=== PATIENT | female | born 1945 | race Caucasian/White ===

== ENCOUNTER → 2016-10-01 | Outpatient (CLI) | payer MEDICARE, BC ==
[~2016-10-01] MED LIST: MIRALAX17 GM PO; SIMVASTATIN20 MG PO; ST. JOSEPH81 M2 PO
== END ==
LOC: MAMMO 13:40
DX: Z12.31 Encounter for screening mammogram for malignant neoplasm of breast (principal); Z00.00 Encounter for general adult medical examination without abnormal findings
CPT/HCPCS: G0202

== ENCOUNTER → 2016-10-14 | Day surgery (SDC) | payer MEDICARE, BC | LOC: MSO 07:07 | DX: Z12.11 Encounter for screening for malignant neoplasm of colon (principal); D12.5 Benign neoplasm of sigmoid colon; D12.3 Benign neoplasm of transverse colon; K57.30 Diverticulosis of large intestine without perforation or abscess without bleeding; Z87.891 Personal history of nicotine dependence | CPT/HCPCS: 00810; A4649; J3010; J7120 ==

== ENCOUNTER → 2016-10-16 | Outpatient (CLI) | payer MEDICARE, BC | LOC: RAD 08:58 | DX: R41.3 Other amnesia (principal) ==

== ENCOUNTER 2016-10-24 15:37 | Emergency (ER) | payer MEDICARE, BC ==
[~2016-10-24 15:37] MED LIST changes: -MIRALAX17 GM PO
[2016-10-24] MEDS ORDERED: MIRALAX17 GM PO (15:51)
[2016-10-24 18:45] VITALS: BP 128/53
== END 2016-10-24 18:52 | disposition home or self-care (01) ==
LOC: ED 15:37
DX: K59.00 Constipation, unspecified (principal)

== ENCOUNTER → 2016-11-27 | Outpatient (CLI) | payer MEDICARE, BC ==
[~2016-11-27] MED LIST changes: +MIRALAX17 GM PO
== END ==
LOC: LAB 07:02
DX: Z00.00 Encounter for general adult medical examination without abnormal findings (principal); R41.3 Other amnesia; K59.09 Other constipation; E78.2 Mixed hyperlipidemia; R73.01 Impaired fasting glucose

== ENCOUNTER → 2017-10-07 | Outpatient (CLI) | payer MEDICARE, BC | LOC: MAMMO 08:20 → RAD 08:30 → MAMMO 08:30 | DX: Z12.31 Encounter for screening mammogram for malignant neoplasm of breast (principal) ==

== ENCOUNTER → 2017-10-07 | Outpatient (CLI) | payer MEDICARE, BC ==
[2017-10-07 08:46] LABS: ALBUMIN 4.3 g/dL (3.5-5.0); DIRECT BILIRUBIN 0.5 mg/dL (0.0-0.4); TOTAL BILIRUBIN 0.9 mg/dL (0.2-1.3); TOTAL PROTEIN 7.5 g/dL (6.3-8.2)
[2017-10-07 08:56] LABS: HEMATOCRIT 41.2 % (37.0-47.0); HEMOGLOBIN 13.2 g/dL (12.5-16.0); MEAN CELL VOLUME 98 fl (78-100); MEAN CORPUSCULAR HEMOGLOBIN 31 pg (27-31); MEAN CORPUSCULAR HGB CONC 32 g/dL (33-37); PLATELET COUNT 207 K/mm3 (130-400); RED CELL DISTRIBUTION WIDTH 12.8 % (11.5-14.5); WHITE BLOOD COUNT 6.1 K/mm3 (4.8-10.8)
[2017-10-07 09:05] LABS: BUN/CREATININE RATIO 15.1 (6.0-26.0); CALCIUM 9.1 mg/dL (8.4-10.2); POTASSIUM 4.2 mmol/L (3.6-5.0)
[2017-10-07 09:14] LABS: LYMPHOCYTE 12 % (20-51); MONOCYTE 8 % (3-10); NEUTROPHILS 76 % (42-75)
== END ==
LOC: LAB 08:21
PROVIDERS: Nurse Practitioner Family
DX: E78.2 Mixed hyperlipidemia (principal); R41.3 Other amnesia; R73.01 Impaired fasting glucose; K59.09 Other constipation; Z12.31 Encounter for screening mammogram for malignant neoplasm of breast; J30.1 Allergic rhinitis due to pollen

== ENCOUNTER → 2018-10-13 | Outpatient (CLI) | payer MEDICARE, BC | LOC: MAMMO 09:06 | DX: Z12.31 Encounter for screening mammogram for malignant neoplasm of breast (principal) ==

== ENCOUNTER → 2019-11-25 | Outpatient (CLI) | payer MEDICARE, BC | LOC: MAMMO 10-18 09:15 | DX: Z12.31 Encounter for screening mammogram for malignant neoplasm of breast (principal) ==

== ENCOUNTER → 2020-03-22 | Outpatient (CLI) | payer MEDICARE, BC | LOC: LAB 11:52 | DX: R05 Cough (principal); Z20.828 Contact with and (suspected) exposure to other viral communicable diseases ==

== ENCOUNTER → 2020-08-29 | Outpatient (CLI) | payer MEDICARE, BC ==
[~2020-08-29] VITALS: Ht 172.7 cm; Wt 81.8 kg
[2020-08-29 08:52] VITALS: BP 95/66
== END ==
LOC: AMSURD 08:44
DX: K56.41 Fecal impaction (principal)

== ENCOUNTER → 2020-09-04 | Outpatient (CLI) | payer MEDICARE, BC ==
[2020-08-29 08:52] VITALS: BP 95/66
[2020-09-04 09:53] LABS: POTASSIUM 4.2 mmol/L (3.5-5.1)
[2020-09-04 09:54] LABS: CALCIUM 9.2 mg/dL (8.3-10.5)
[2020-09-04 09:55] LABS: TOTAL PROTEIN 6.2 g/dL (6.2-8.1)
[2020-09-04 09:57] LABS: TOTAL BILIRUBIN 0.5 mg/dL (0.2-1.2)
[2020-09-04 10:09] LABS: EOS # 0.2 (0.04-0.40); EOS % 2.3 % (1.0-5.0); HEMATOCRIT 44.4 % (37.0-47.0); HEMOGLOBIN 14.3 g/dL (12.5-16.0); LYMPH# 1.1 (1.50-4.00); MEAN CELL VOLUME 94 fl (78-100); MEAN CORPUSCULAR HEMOGLOBIN 30 pg (27-31); MEAN CORPUSCULAR HGB CONC 32 g/dL (33-37); MEAN PLATELET VOLUME 10.2 fl (7.4-10.4); MONO # 0.7 (0.20-0.80); NEU # 6.4 (1.40-6.50); PLATELET COUNT 268 K/mm3 (130-400); RED BLOOD COUNT 4.71 M/mm3 (4.10-5.30); RED CELL DISTRIBUTION WIDTH 14.4 % (11.5-14.5); WHITE BLOOD COUNT 8.4 K/mm3 (4.8-10.8)
== END ==
LOC: LAB 09:27
PROVIDERS: Family Medicine
DX: Z00.00 Encounter for general adult medical examination without abnormal findings (principal); E78.5 Hyperlipidemia, unspecified